=== PATIENT | male | born 1990 | race Caucasian/White ===

== ENCOUNTER 2017-02-02 08:16 | Emergency (ER) | payer SELFPAY ==
[~2017-02-02] VITALS: Ht 177.8 cm; Wt 73.8 kg
[2017-02-02 08:26] VITALS: BP 114/75; PULSE 83; RESP 16; TEMP 98.2; O2SAT 99
[2017-02-02 08:31] VITALS: BP 114/75; PULSE 83; RESP 18; TEMP 98.2; O2SAT 98
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
[2017-02-02] MEDS ORDERED: NAPR500T PO (09:25)
[2017-02-02] MEDS ORDERED: CHLO1.4S2 PO (09:25)
== END 2017-02-02 09:33 | disposition home or self-care (01) ==
LOC: PHED 08:16
DX: S60.221A Contusion of right hand, initial encounter (principal); J02.8 Acute pharyngitis due to other specified organisms; W22.8XXA Striking against or struck by other objects, initial encounter; F17.200 Nicotine dependence, unspecified, uncomplicated; Y04.0XXA Assault by unarmed brawl or fight, initial encounter
CPT/HCPCS: 73130; 99283